=== PATIENT | male | born 1970 | race African-American/Black ===

== ENCOUNTER 2016-04-06 10:44 | Emergency (ER) | payer BC ==
[~2016-04-06] VITALS: Ht 185.4 cm; Wt 97.5 kg
[2016-04-06 12:07] LABS: DEFINITIVE VIEW TRANSMISSION; Mean Corpuscular Hgb Conc. 31.7 g/dL (32.0-36.0); Mean Platelet Volume 8.6 fL (7.4-10.4); SUSPECT VIEW TRANSMISSION
[2016-04-06 12:13] LABS: Hematocrit 46.9 % (41.0-53.0); Hemoglobin 14.9 g/dL (13.5-17.5); Mean Corpuscular Hemoglobin 26.6 pg (28.0-32.0); Mean Corpuscular Volume 83.8 fL (80.0-100.0); Platelet Count (auto) 261 10^3/uL (140-450); Red Cell Distribution Width 17.1 % (11.6-16.0); White Blood Cell 4.2 10^3/uL (4.4-10.8)
[2016-04-06 12:15] LABS: Metamyelocytes % 0; Myelocytes % 0; Promyelocytes % 0; Reactive Lymphocytes 0
[2016-04-06 12:22] LABS: Partial Thromboplastin Time 27.6 sec (22.64-33.71); Prothrombin Time 10.3 sec (9.37-12.3)
[2016-04-06 12:29] LABS: Albumin 3.9 g/dL (3.4-5.0); Anion Gap 7 (5-15); Aspartate Aminotransferase 57 U/L (15-37); Blood Urea Nitrogen 13 mg/dL (7-18); Calcium 8.7 mg/dL (8.5-10.1); Carbon Dioxide 28 mmol/L (21-32); Chloride 107 mmol/L (98-107); GFR African American 114 mL/min; GFR Non-African American 94 mL/min; Glucose 119 mg/dL (74-106); Potassium 4.1 mmol/L (3.5-5.1); Sodium 142 mmol/L (136-145)
[2016-04-06 12:34] LABS: Alkaline Phosphatase 60 U/L (45-117); Bilirubin, Total 0.3 mg/dL (0.2-1.0); Total Protein 7.9 g/dL (6.4-8.2)
[2016-04-06 12:45] LABS: B-Type Natriuretic Peptide 15.56 pg/mL (0-100)
[2016-04-06 12:50] LABS: Temperature: 22.5 C (20.0-25.0)
[2016-04-06 13:12] LABS: Hypochromia Slight; Platelet Estimate Adequate
[2016-04-06 13:13] LABS: Giant Platelets Few; Large Platelets FEW
[2016-04-06 13:32] VITALS: BP 145/98
[2016-04-06] MEDS ORDERED: ONDANSETRON HCL 4 MG/2 ML VIAL IV ONE (13:45)
[2016-04-06] MEDS ORDERED: MORPHINE SULFATE 4 MG/ML SYRG IV ONE (13:45)
[2016-04-06] MEDS ORDERED: MORPHINE SULFATE 4 MG/ML SYRG IM ONE (14:00)
[2016-04-06] MEDS ORDERED: ONDANSETRON ODT 4 MG TAB PO ONE (14:00)
[2016-04-06] MEDS ORDERED: LORazepam 0.5 MG TAB PO ONE (14:00)
== END 2016-04-06 15:17 | disposition home or self-care (01) ==
LOC: ER 10:50
DX: R07.89 Other chest pain (principal)
CPT/HCPCS: 36415; 71020; 80053; 83880; 84484; 85007; 85027; 85610; 85730; 93005; 96372; 99285; J2270; Q0162

== ENCOUNTER 2017-12-17 20:37 | Emergency (ER) | payer BC ==
[~2017-12-17] VITALS: Ht 185.4 cm; Wt 99.8 kg
[2017-12-17 20:49] VITALS: BP 162/105
[2017-12-17] MEDS ORDERED: HYDROcodone-ACET 10/325MG TAB PO ONE (23:00)
== END 2017-12-17 23:27 | disposition home or self-care (01) ==
LOC: ER 20:37
DX: M54.2 Cervicalgia (principal); I10 Essential (primary) hypertension; Z88.2 Allergy status to sulfonamides
CPT/HCPCS: 72040